=== PATIENT | female | born 1960 | race Caucasian/White ===

== ENCOUNTER 2017-10-10 14:49 | Outpatient (CLI) | payer OTHER ==
[2015-03-31 22:45] VITALS: BP 152/76
[2017-10-10 15:19] LABS: BASOPHILS % 1.2 (0.0-1.5); EOSINOPHILS % 8.1 % (0.0-6.8); MEAN CORPUSCULAR HEMOGLOBIN 30.2 pg (28.0-34.0); MEAN CORPUSCULAR VOLUME 92.4 fl (80.0-100.0); MONOCYTES % 4.8 % (0.0-11.0); NEUTROPHILS # 4.9 # k/uL (1.4-7.7)
[2017-10-10 15:36] LABS: eGFR (African) > 60; eGFR (Non-African) > 60
== END 2017-10-10 14:50 ==
LOC: LAB 14:49
PROVIDERS: ATTEND Family Medicine
DX: E78.5 Hyperlipidemia, unspecified (principal); R06.09 Other forms of dyspnea
CPT/HCPCS: 36415; 80053; 80061; 83036; 85025